=== PATIENT | female | born 1995 | race Caucasian/White ===

== ENCOUNTER 2021-07-19 05:33 | Inpatient (IN) | payer MEDICAID, SELFPAY ==
[2021-07-19] VITALS (26 sets, daily range): BP systolic 105–128; BP diastolic 64–81; PULSE 65–89; RESP 16–17; TEMP 36.2–36.9; O2SAT 96–100
[2021-07-19] MEDS: lactated ringers 1,000 ML 999 ML IV (06:03)
[2021-07-19 06:15] LABS: Basophils % 0.2 %; Eosinophils # 0.1 10^3/uL (0.0-0.8); Eosinophils % 0.8 %; Hemoglobin 14.2 g/dL (11.5-15.3); Lymphocytes # 1.7 10^3/uL (0.8-4.8); Mean Corpuscular HGB Conc 33.8 g/dL (30.0-36.0); Mean Corpuscular Hemoglobin 31.6 pg (28.0-34.0); Mean Corpuscular Volume 93.3 fl (81-99); Mean Platelet Volume 10.8 fL (7.4-10.4); Monocytes # 0.7 10^3/uL (0.2-0.9); Monocytes % 7.6 %; Neutrophils # 6.09 10^3/uL (1.8-7.7); Neutrophils % 71.2 %; Nucleated Red Blood Cells % 0 %; Platelet Count 206 10^3/cmm (130-400); Red Cell Distribution Width 12.7 % (12.1-15.1); White Blood Count 8.6 10^3/uL (4.0-10.0)
[2021-07-19] MEDS: citric acid-sodium citrate 30 mL UDC PO (06:38)
[2021-07-19] MEDS: famotidine 20 mg/2 mL INJ IVP (06:38)
[2021-07-19] MEDS: metoclopramide 5 mg/mL SDV 2 mL 10 MG IVP (06:38)
--- NOTE | 2021-07-19 06:44 | ANES.PREANE2 ---
Pre-Anesthetic Assessment Pre-Anesthetic Assessment: Height/Weight: Height 1.57 m Weight 52.163 kg Temp Pulse Resp BP 97.3 F L 89 16 118/81 07/19/21 05:47 07/19/21 05:48 07/19/21 05:45 07/19/21 05:48 Preop Diagnosis: IUP Proposed Procedure: Operation Date: 07/19/21 07:00 Proposed Procedures p Section Repeat With Tubal(Not Applicable) - Romy Bello MD Was Beta Tayo taken within 24 hours: N/A Was Clonidine taken within 24 hours: N/A Last intake: Intake Last Liquid Date 07/18/21 Last Liquid Time 23:00 Last Solid Date 07/18/21 Last Solid Time 21:30 Social: Social History: No alcohol and No tobacco Exam: Pre-Anes Outpt Exam: alert, oriented x 3 and regular rate & rhythm Airway: Submandibular: WNL Cervical ROM: WNL MP: 1 Dentition: Chipped (top left) History/ROS: No significant history except as noted Pulmonary: Pulmonary: Asthma CV/HEM: CV/HEM: None reported : : None reported Hepatic: Hepatic: None reported GI: GI: GERD Metabolic: Metabolic: None reported Musc/skel: Musc/skel: None reported Neuropsych: Neuropsych: None reported Anesthetic Plan: ASA status: 2 PFSH Anesthesia Female Reproductive History: : 4 Data Anesthesia CBC & Chem 7: 07/19/21 05:55 Other Labs: Laboratory Results - last 48 hr 07/19/21 05:55 WBC 8.6 RBC 4.50 Hgb 14.2 Hct 42.0 MCV 93.3 MCH 31.6 MCHC 33.8 RDW 12.7 Plt Count 206 MPV 10.8 H Neut % (Auto) 71.2 Lymph % (Auto) 20.0 [place] % (Auto) 7.6 Eos % (Auto) 0.8 Baso % (Auto) 0.2 Neut # (Auto) 6.09 Lymph # (Auto) 1.7 [place] # (Auto) 0.7 Eos # (Auto) 0.1 Baso # (Auto) 0.0 Nucleated RBC % (auto) 0 Nucleated RBCs # 0.0 Cardiac Studies: No Data to Display
[2021-07-19 06:48] LABS: Amphetamines Screen Urine Negative (Negative); Barbiturates Screen Urine Negative (Negative); Benzodiazepines Screen Urine Negative (Negative); Cocaine Screen Urine Negative (Negative); Opiate Screen Urine Negative (Negative); PCP Screen Urine Negative (Negative); THC Screen Urine Positive (Negative)
--- NOTE | 2021-07-19 08:42 | PM.OPHPUD ---
Labor & Delivery H&P Update Date of Procedure: July 19, 2021 Date H&P Performed: 07/14/21 Admission Diagnosis: Preop diagnosis: IUP Planned procedure: Operation Date: 07/19/21 07:00 Proposed Procedures p Section Repeat With Tubal(Not Applicable) - Romy Bello MD
--- NOTE | 2021-07-19 08:42 | PM.OP ---
Operative Report Date of procedure: July 19, 2021 Pre-op Diagnosis: Repeat section Desires permanent surgical sterilization Post-op diagnosis: same Procedure Done: Repeat low transverse section Bilateral tubal ligation Specimens removed/disposition: Vertex female weight 2545 g 5 pounds 10 ounces Apgars 9 and 9 Pathology: none sent Surgeon: Romy Bello Anesthesia: Other (Spinal) Estimated blood loss (mL): 300 IV fluids (mL): 1,500 Urine output (mL): 200 Complications: None Condition: stable Disposition: floor Procedure: After informed consent the patient was taken to the OR where spinal anesthesia was administered. She was prepped and draped in normal sterile fashion in dorsal supine position with a left lateral tilt. A Pfannenstiel skin incision was made through the prior scar and carried through to the underlying layer of fascia sharply. The fascial incision was then extended laterally using the [place]. There is a decent amount of scar tissue. The fascia was then grasped with Chen clamps and the underlying rectus muscles were dissected off taking care to avoid injury to the underlying tissue. The peritoneum was entered digitally and the incision site was manually stretched. Bladder blade was inserted and the vesicouterine peritoneum was identified and entered sharply using the Metzenbaums. Bladder flap was created digitally. Bladder blade was reinserted. Uterine incision was made in a transverse fashion in the lower uterine segment. Amniotic rupture membranes was performed sharply and clear fluid was noted. The 's head was delivered atraumatically and the rest of the infant was delivered immediately. The infant was suctioned at delivery. The cord was clamped and cut and the was handed to the waiting pediatric nurse. The placenta was delivered using fundal pressure. A dry sponge was used to clear the uterus of clots and debris. The uterus was then exteriorized from the abdomen. The bladder blade was reinserted. Uterine incision was repaired using 0 chromic in a running locked fashion. A second layer of the same suture was used in an imbricating manner. Excellent hemostasis was obtained. The left fallopian tube was then grasped with a [place] and a midportion of the tube was ligated and excised. Tubal ostia were identified. Segment of the tube was sent to pathology. The cut portions of the tube were coagulated using the Bovie. The right fallopian tube was then grasped with a [place] and a midportion of the tube was ligated and excised. Tubal ostia were identified. Specimen was sent to pathology. The cut portions of the tube were coagulated using the Bovie. The uterus was then gently returned to the abdomen. Irrigation was used to clear the gutters of clots and debris. Uterine incision and tubal site was reinspected for hemostasis. The peritoneum was then reapproximated using 4-0 Vicryl in a running fashion. The fascia was then reapproximated using 0 Vicryl in a running fashion. The subcutaneous tissue was minimal but was reapproximated using 4-0 Vicryl in a running fashion. The skin was then reapproximated using 4-0 Vicryl on a [place] needle. Steri-Strips and a pressure bandage were applied and patient went to recovery in stable condition. Sponge instrument and needle counts were correct
[2021-07-19] MEDS: dextrose 5%-lactated ringers 1,000 ML 125 ML IV ×2 (09:42→18:44)
--- NOTE | 2021-07-19 10:03 | ANE.PACU2 ---
Inpatient post-anesthesia follow up: Airway intact: Yes Vital signs: Temperature 97.3 F Pulse Rate 89 Respiratory Rate 16 Blood Pressure 118/81 Pulse Oximetry Oxygen Delivery Me thod Room Air Oxygen Flow Rate Fraction of Inspir ed Oxygen Hydration adequate: Yes Nausea and vomiting: No Pain level: 2 Mental status: Baseline
[2021-07-19] MEDS: ketorolac 30 mg/mL INJ IVP ×2 (14:22→20:40)
[2021-07-19] MEDS: docusate sodium 100 mg Capsule PO (18:44)
[2021-07-19] MEDS: diphenhydrAMINE 50 mg/mL SDV 1mL 25 MG IVP (20:40)
[2021-07-19 21:40] LABS: Hematocrit 37.7 % (37.0-47.0); Hemoglobin 12.8 g/dL (11.5-15.3); Mean Corpuscular Hemoglobin 31.7 pg (28.0-34.0); Mean Corpuscular Volume 93.3 fl (81-99); Mean Platelet Volume 10.8 fL (7.4-10.4); Platelet Count 178 10^3/cmm (130-400); Red Blood Count 4.04 10^6/uL (4.1-5.3); Red Cell Distribution Width 12.8 % (12.1-15.1); White Blood Count 11.2 10^3/uL (4.0-10.0)
[2021-07-20 00:15] VITALS: BP 102/53; PULSE 77; TEMP 36.7; O2SAT 96
[2021-07-20] MEDS: ketorolac 30 mg/mL INJ IVP (03:12)
[2021-07-20 04:48] VITALS: BP 100/59; PULSE 85; TEMP 36.8; O2SAT 98
[2021-07-20] MEDS: ibuprofen 800 mg tablet PO ×3 (08:57→20:28)
[2021-07-20] MEDS: ferrous sulfate EC 325 mg Tablet PO (08:57)
[2021-07-20] MEDS: hyDROXYzine 25 mg Capsule 50 MG PO (08:57)
[2021-07-20] MEDS: prenatal vitamin Capsule 1 CAP PO (08:58)
[2021-07-20] MEDS: docusate sodium 100 mg Capsule PO (08:58)
[2021-07-20 09:01] VITALS: BP 105/69; PULSE 76; RESP 16; TEMP 36.7
[2021-07-20] MEDS: HYDROcodone-acetaminophen 5-325 mg Tablet PO ×2 (10:57→20:28)
[2021-07-20 17:10] VITALS: BP 110/67; PULSE 81; RESP 16; TEMP 36.8
[2021-07-21 00:05] VITALS: BP 119/75; PULSE 90; RESP 16
[2021-07-21] MEDS: HYDROcodone-acetaminophen 5-325 mg Tablet PO (05:38)
[2021-07-21] MEDS: prenatal vitamin Capsule 1 CAP PO (08:54)
[2021-07-21] MEDS: docusate sodium 100 mg Capsule PO (08:54)
[2021-07-21] MEDS: ibuprofen 800 mg tablet PO (08:54)
--- NOTE | 2021-07-21 12:28 | P.DS_ITS ---
Discharge Providers INFORMATION SECURITY DIRECTOR Date of Admission: 07/19/21 05:33 Date of Discharge: 07/21/21 Attending Provider at Admission: Romy Bello MD Attending Provider at Discharge: Romy Bello MD Hospital Course Hospital Course This is a 25-year-old G3 now P3 who was admitted for repeat section and bilateral tubal ligation. She has done well postoperatively. She has good pain control very minimal vaginal bleeding and is tolerating a regular diet. She is very ready for discharge home Information Peripartum Data: Delivery Method: Physical Exam Narrative: EXAM NARRATIVE: Alert and sitting up in bed, heart regular rate and rhythm, lungs clear to auscultation bilaterally, abdomen soft with appropriate postoperative tenderness, incision clean dry and intact with Steri-Strips in place, no pedal edema, no calf tenderness Discharge Data Data Completed and Pending: Completed Studies During Hospitalization Category Date Time Status Pathology: Surgic al [PTH] Routine Pth 07/19/21 10:47 Completed Vitals: Last Vital Signs Temp 98.2 F 07/20/21 17:10 Pulse 90 07/21/21 00:05 Resp 16 07/21/21 00:05 BP 119/75 07/21/21 00:05 Pulse Ox 98 07/20/21 04:48 Discharge Plan Discharge Patient Disposition: Home Condition: Stable Prescriptions: New ibuprofen 800 mg Tablet 800 mg PO TID PRN (Reason: Abdominal Discomfort) Qty: 30 RF: 0 hydrocodone-acetaminophen 5-325 mg Tablet 1 - 2 tab PO Q4H PRN (Reason: Abdominal Pain) Qty: 20 RF: 0 docusate sodium 100 mg Capsule 100 mg PO BID Qty: 60 RF: 0 Continued Flintstones Multivitamin Tablet,Chewable 1 tab PO DAILY RF: 0 ProAir HFA 90 mcg/actuation HFA aerosol inhaler 1 inh INHALATION PRN PRN (Reason: Shortness Of Breath) RF: 0 Discharge Orders: Discharge Order (Routine); Ordered 07/21/21 Ordered By: Romy Bello Referrals: Romy Bello MD [Physician] - 2 weeks Discharge Diet: Usual diet Discharge Activity: Limit activity as instructed Patient Instructions: Lanolin (On the skin), Expression, Collection and Storage of Breast Milk (GEN), and Breast Engorgement (GEN), How to Increase Your Milk Supply (GEN), Tubal Ligation (GEN), Breast Care for the Mother (GEN), OB - Mayelin/Ace, OB Discharge Report, OB Food/Drug Interaction Guide, Opioid Safety, OB Home Care Discharge Attestations INFORMATION SECURITY DIRECTOR Time Spent in Discharge Care*: less than 30 min Coding Level of Care Code Acute Professor Of Literacy for Aicha Mccoy
--- NOTE | 2021-07-21 12:37 | PM.OBGYPN ---
PANEL INSTRUMENT REPAIRER Subjective Subjective: Interval history: visit date: 07/20/2021 She is doing well. She has not had very much vaginal bleeding. She says her pain is the best it has ever been with her prior C-sections. Vitals/I&O/Wt Last Vital Signs Temp 98.2 F 07/20/21 17:10 Pulse 90 07/21/21 00:05 Resp 16 07/21/21 00:05 BP 119/75 07/21/21 00:05 Pulse Ox 98 07/20/21 04:48 Physical Exam Narrative: EXAM NARRATIVE: Alert and oriented, no acute distress, sitting up in bed, abdomen is soft with appropriate postoperative tenderness, incision is clean dry and intact. No calf tenderness Data : 07/19/21 21:04 A&P Assessment and plan (1) Status post repeat low transverse section: Patient is postop day #1. She is doing well. She had a repeat section with bilateral tubal ligation. Continue routine postoperative care and likely discharge home tomorrow if doing well Status: Acute (2) History of bilateral tubal ligation: Status: Acute Attestations Medical Necessity Statement*: Routine postoperative and care Coding Level of Care Code Acute Instrumentation And Controls Technician for Chg Fwd Diagnoses Status post repeat low transverse section Z98.891 History of bilateral tubal ligation Z98.51
[2021-07-21 13:39] VITALS: BP 119/76; PULSE 88; RESP 16; TEMP 36.5
== END 2021-07-21 13:55 | disposition home or self-care (01) | DRG 785 ==
PROVIDERS: Admitting Provider Family Medicine; Visit Provider Family Medicine
PROC: 10D00Z1 Extraction of Products of Conception, Low, Open Approach (ICD-10-PCS; CPT 59514; principal; 2021-07-19 07:00)
DX: O34.211 Maternal care for low transverse scar from previous cesarean delivery (principal); Z37.0 Single live birth; Z30.2 Encounter for sterilization; Z3A.39 39 weeks gestation of pregnancy
CPT/HCPCS: 36415; 51702; 59025; 59409; 80306; 85025; 85027; 88302; 96374; 96376; 98960; J0690; J1200; J1885; J2274; J2405; J2765; J3490; J7030